=== PATIENT | male | born 1980 | race Caucasian/White ===

== ENCOUNTER 2020-02-22 19:14 | Emergency (ER) | payer OTHER, SELFPAY ==
--- NOTE | ~2020-02-22 | XR_ITS ---
EXAMINATION: XR shoulder RT min 2V INDICATION: Right shoulder pain, initial encounter TECHNIQUE: Four views of the right shoulder are submitted. COMPARISON: None FINDINGS: There is an oblique fracture at the junction of the middle/distal thirds of the right clavi amee. Glenohumeral and acromioclavicular joint spaces are normal. Soft tissues are unremarkable. IMPRESSION: Acute fracture of the right clavicle. Reviewed, dictated and finalized at location A.
--- NOTE | ~2020-02-22 | XR_ITS ---
EXAMINATION: XR elbow RT min 3V INDICATION: Right elbow pain, initial encounter TECHNIQUE: Four views of the right elbow are obtained. COMPARISON: None available FINDINGS: There is a transverse fracture of the olecranon with proximal retraction of the proximal ol ecranon fracture fragment. An elbow joint effusion is present. There is significant posterior soft ti ssue swelling overlying the olecranon. The proximal radius appears normal. IMPRESSION: 1. Acute fracture of the olecranon with elbow joint effusion and significant posterior soft tissue sw elling of the elbow. Reviewed, dictated and finalized at location A. IMPRESSION: 1. Acute fracture of the olecranon with elbow joint effusion and significant po sterior soft tissue swelling of the elbow.
--- NOTE | ~2020-02-22 | XR_ITS ---
EXAMINATION: XR ribs RT 2V w CXR 2V INDICATION: Right rib pain TECHNIQUE: AP and lateral views of the chest and right views of the right ribs were obtained. COMPARISON: None. FINDINGS: No displaced rib fracture is identified. The lungs are free of acute opacities. There is no pneumothorax. A small right pleural effusion is present. Again noted is mild deformity at the juncti on of the middle and distal thirds of the right clavicle. IMPRESSION: 1. No displaced rib fracture identified. 2. Nondisplaced right clavicle fracture. Reviewed, dictated and finalized at location A.
[2020-02-22 19:18] VITALS: BP 115/88; PULSE 62; RESP 15; TEMP 36.1; O2SAT 100
--- NOTE | 2020-02-22 20:26 | ED.FALL ---
HPI - Fall General Chief Complaint: Fall Stated Complaint: Fell off skate board Time Seen by Provider: 02/22/20 19:18 History of Present Illness HPI Narrative: Patient is a 39-year-old male who presents the ER status post falling off a skateboard. Fell on his right side. Mainly struck his elbow jarring his shoulder and then hurting his chest wall. Although is very swollen and has pain with range of motion. Also has pain over his clavicle with direct palpation and some pain over the anterior lateral chest wall. No dyspnea. Did not strike his head or lose consciousness. No numbness or tingling in the upper extremity. Related Data Allergies Allergy/AdvReac Type Severity Reaction Status Date / Time No Known Allergies Allergy Verified 02/22/20 19:21 Review of Systems Respiratory: Respiratory: Denies cough and Denies dyspnea Comments: Chest wall pain Musculoskeletal: Musculoskeletal: Reports arthralgias and Reports joint swelling Neurologic: Denies focal weakness and Denies numbness PMFSH Past Medical History Medical History (Updated 02/22/20 @ 20:51 by Freddy Kinsey MD) Healthy adult male Surgical History Surgical History (Updated 02/22/20 @ 20:48 by Freddy Kinsey MD) No pertinent past surgical history Social History Social History (Updated 02/22/20 @ 20:48 by Freddy Kinsey MD) Social History: Occasional EtOH Exam Narrative: Exam Narrative: GENERAL: Well-appearing, well-nourished, and in no acute distress. HEAD: Normocephalic, atraumatic. CHEST: Clear to auscultation. No respiratory distress. Tenderness anterolateral chest wall that is not in the mid axillary line. No palpation over right clavicle middle third. HEART: Regular rate and rhythm. Normal peripheral pulses. EXTREMITIES: Focused exam of the right upper extremity shows large amount of swelling over the elbow without radial head tenderness or tenderness over the condyles. No injury to the wrist or fingers. Abrasion noted over the lateral elbow and the deltoid of the right upper extremity. SKIN: Warm, dry, no rash. NEURO: No focal deficits. Alert and oriented x3. Course Course Emergency Course: Discussed results with Dr. Ortiz. Patient has been placed in a long-arm posterior splint. Vital Signs Vital signs: Vital Signs Temperature 97.0 F L 02/22/20 19:18 Pulse Rate 62 02/22/20 19:18 Respiratory Rate 15 02/22/20 19:18 Blood Pressure 115/88 02/22/20 19:18 Pulse Oximetry 100 02/22/20 19:18 Temperature 97.0 F L 02/22/20 19:18 Pulse Rate 62 02/22/20 19:18 Respiratory Rate 15 02/22/20 19:18 Blood Pressure 115/88 02/22/20 19:18 Pulse Oximetry 100 02/22/20 19:18 Procedures Orthopedic Splinting/Casting Injury #1: Splinting/Casting Date: 02/22/20 Splinting/Casting Time: 20:40 Side: right Upper Extremity Injury Location: elbow Upper Extremity Immobilizer: posterior splint Splint: customized in ED Pre-Procedure Neuro Vascular Exam: normal Post-Procedure Neuro Vascular Exam: normal Other Orthopedic Equipment: other (Sling) Discharge Plan Discharge Clinical Impression: Closed olecranon fracture, Broken clavicle Patient Disposition: Home, Self-Care Condition: Stable Instructions: Antibiotic Form, Clavicle Fracture (ED), Elbow Fracture (ED) Additional Instructions: Return to the ER if you have a cold blue hand, you have new numbness or tingling in her hand, you suffer new injury, you have additional concerns. Prescriptions: New hydrocodone-acetaminophen 5-325 mg tablet 1 tablet PO Q6H PRN (Reason: pain) Qty: 20 RF: 0 Follow-up/Referrals: PHYSICIAN NOT ON STAFF,NONSTAFF [Primary Care Provider] - Julius Carlos MD [Physician] - 1 Day
== END 2020-02-22 21:00 | disposition home or self-care (01) ==
PROVIDERS: Emergency Provider Emergency Medicine
DX: S52.021A Displaced fracture of olecranon process without intraarticular extension of right ulna, initial encounter for closed fracture (principal); S42.021A Displaced fracture of shaft of right clavicle, initial encounter for closed fracture; V00.131A Fall from skateboard, initial encounter
CPT/HCPCS: 29105; 71046; 71100; 73030; 73080; 99284; A4565; A9270

== ENCOUNTER 2020-02-23 04:41 | Emergency (ER) | payer OTHER, SELFPAY ==
[2020-02-23] VITALS (7 sets, daily range): BP systolic 92–134; BP diastolic 58–83; PULSE 55–85; RESP 15; O2SAT 97–100
--- NOTE | ~2020-02-23 | CT_ITS ---
EXAMINATION: CT brain wo con DATE: 02/23/2020 05:16 INDICATION: Syncope TECHNIQUE: Computed tomography (CT) of the head was performed without intravenous contrast. Sagittal and coronal reconstructions were performed. The mA was adjusted according to patient size. Iterative reconstruction technique was employed. The dose-length product was 681.00 mGy-cm. COMPARISON: None FINDINGS: No acute intracranial hemorrhage, acute infarction or abnormal extra axial fluid collection. Ventricl es are normal and symmetric. No mass/mass effect. Mucous retention cyst in the right maxillary sinus. The orbits and mastoid air cells are normal. IMPRESSION: 1. No acute intracranial process. Reviewed, dictated and finalized at location A.
--- NOTE | 2020-02-23 04:50 | ECG_ITS ---
Measurements Intervals [place] Rate: 68 P: 54 GA: 169 QRS: 19 QRSD: 98 T: 47 QT: 392 QTc: 418 Interpretive Statements SINUS RHYTHM WITH SINUS ARRHYTHMIA BASELINE WANDER- V3-V6 NORMAL ECG Electronically Signed On 02-23-2020 7:39:17 CDT by Johnny Holm D.O.
[2020-02-23 04:58] LABS: Glucose Point of Care 108 (65-105)
[2020-02-23] MEDS: SODIUM CHLORIDE 0.9% IV 1,000 ML 999 ML IV CONT ×2 (05:05→06:08)
--- NOTE | 2020-02-23 05:07 | PC.NURSE ---
Pt. to CT via stretcher
[2020-02-23 05:11] LABS: Basophils Percent Auto 0.2 % (0.2-1.2); Eosinophils Percent Auto 0.1 % (0-4.4); Hematocrit 44.4 % (42.0-52.0); Hemoglobin 14.8 g/dL (14.0-18.0); Immature Granulocyte Absolute 0.04 K/mm3 (0.00-0.031); Immature Granulocyte Percent A 0.4 % (0-0.5); Lymphocytes Absolute Auto 1.04 K/mm3 (0.9-3.2); Lymphocytes Percent Auto 10.4 % (18.3-44.2); Mean Corpuscular HGB Conc 33.3 g/dl (32-36); Mean Corpuscular Hemoglobin 29.6 pg (26-34); Mean Corpuscular Volume 88.8 fl (80-100); Mean Platelet Volume 9.9 fl (7.4-10.4); Monocytes Absolute Auto 0.6 K/mm3 (0.1-0.6); Neutrophils Absolute Auto 8.3 K/mm3 (1.3-6.7); Neutrophils Percent Auto 82.9 % (45.5-73.1); Platelet Count Result 209 k/mm3 (150-375); Red Cell Distribution Width 12.9 % (11.5-14.5)
--- NOTE | 2020-02-23 05:18 | ED.SYNCOPE ---
HPI - Syncope General Chief Complaint: Syncope Stated Complaint: passing out Time Seen by Provider: 02/23/20 04:43 History of Present Illness HPI narrative: Patient is a 39-year-old male who presents ER with syncope x2. Patient was recently seen in the ER this evening after falling off of a skateboard and landing on his right side. He suffered a fracture to his right olecranon in his right clavicle. When he fell off his skateboard he was not a high rate of speed and did not strike his head or lose consciousness. He reports the only pain he continues to have is located in his right shoulder clavicle and in his elbow. He is not having any chest discomfort or abdominal pain. When he was at home he got up out of bed to walk to the bathroom. He then felt lightheaded and woke up in the shower after having passed out. He then went back to bed he woke up later and again attempted to go to the bathroom. He felt himself about to go down and his helped him to sit but then he lost consciousness again. Denies injuring himself in these 2 falls. He reports he did not eat dinner and he did receive some narcotic pain medication in the ER. Otherwise he has not had significant heat exposure and feels he has been drinking water adequately through the day. Related Data Allergies Allergy/AdvReac Type Severity Reaction Status Date / Time No Known Allergies Allergy Verified 02/22/20 19:21 Review of Systems Review of Systems: All systems reviewed & are unremarkable except as noted in HPI and below Constitutional: Constitutional: Denies chills, Denies fever(s) and Denies weakness Cardiovascular: Cardiovascular: Denies chest pain and Denies radiating jaw, neck or arm pain Respiratory: Respiratory: Denies dyspnea Gastrointestinal: Gastrointestinal: Denies abdominal pain, Denies nausea and Denies vomiting Musculoskeletal: Musculoskeletal: Reports arthralgias and Reports joint swelling Neurologic: Reports syncope, Denies headache(s), Denies focal weakness and Denies numbness PMFSH Past Medical History Medical History (Updated 02/23/20 @ 06:17 by Freddy Kinsey MD) Healthy adult male Surgical History Surgical History (Updated 02/22/20 @ 20:48 by Freddy Kinsey MD) No pertinent past surgical history Social History Social History (Updated 02/22/20 @ 20:48 by Freddy Kinsey MD) Social History: Occasional EtOH Exam Narrative: Exam Narrative: GENERAL: Well-appearing, well-nourished, and in no acute distress. HEAD: Normocephalic, atraumatic. ENT: Mucous membranes moist. NECK: Supple. No midline tenderness of the cervical spine. CHEST: Clear to auscultation. No respiratory distress. Persistent tenderness over the right clavicle where there is some slight swelling and bruising. HEART: Regular rate and rhythm. Normal peripheral pulses. ABDOMEN: Soft, nontender, nondistended. EXTREMITIES: Right upper extremity immobilized in a splint. No deformity to the left arm or lower extremities. SKIN: Warm, dry, no rash. NEURO: No focal deficits. Alert and oriented x3. Course Course Emergency Course: Positive orthostatics. Unremarkable lab work. Will receive IV hydration. Vital Signs Vital signs: Vital Signs Pulse Rate 71 02/23/20 04:47 Respiratory Rate 15 02/23/20 04:47 Blood Pressure 134/83 02/23/20 04:47 Pulse Oximetry 100 02/23/20 04:47 Pulse Rate 85 02/23/20 05:59 Respiratory Rate 15 02/23/20 05:45 Blood Pressure 110/77 02/23/20 05:59 Pulse Oximetry 100 02/23/20 05:45 MDM - Syncope Lab Data Result diagrams: 02/23/20 05:06 02/23/20 05:06 Labs: Lab Results 02/23/20 02/23/20 02/23/20 Range/Units 04:55 05:06 05:06 WBC 10.0 (4.5-10.0) K/mm3 RBC 5.00 (4.6-6.20) M/mm3 Hgb 14.8 (14.0-18.0) g/dL Hct 44.4 (42.0-52.0) % MCV 88.8 (80-100) fl MCH 29.6 (26-34) pg MCHC 33.3 (32-36) g/dl RDW 12.9 (11.5-14.5) % P
[2020-02-23 05:22] LABS: Blood Urea Nitrogen 15 mg/dL (9-20); Calcium 8.7 mg/dL (8.4-10.2); Carbon Dioxide 26 mmol/L (22-30); Chloride 103 mmol/L (98-107); Estimated Glomerular Filt Rate > 60; Glucose 122 mg/dL (75-110); Potassium 3.9 mmol/L (3.4-5.0); Sodium 136 mmol/L (137-145)
== END 2020-02-23 07:15 | disposition home or self-care (01) ==
PROVIDERS: Emergency Provider Emergency Medicine
DX: I95.1 Orthostatic hypotension (principal)
CPT/HCPCS: 36415; 70450; 80048; 85025; 93005; 96360; 96361; 99284; J7030

== ENCOUNTER 2020-02-24 01:51 | Day surgery (SDC) | payer OTHER, SELFPAY ==
[2020-02-23 13:34] VITALS: BMI 22.4
--- NOTE | 2020-02-23 15:28 | HP_ITS ---
DATE OF SERVICE: 02/24/2020 DIAGNOSIS: Displaced right olecranon fracture. HISTORY OF PRESENT ILLNESS: The patient is a 39-year-old male patient of Dr. Harding, who presents today for ORIF of his right olecranon fracture. He injured it on 02/21 when he was at home with his kids, while they were riding a bike, he was chasing after them on a skateboard. He fell off the skateboard landing hard on his right side. He had immediate pain in the right elbow as well as the right shoulder. He was taken to the emergency room, had x-rays done, which showed he had displaced right olecranon fracture. He also had a minimally angulated right clavicle fracture. He was seen in the office by Dr. Carlos on 02/22. After reviewing the x-rays, Dr. Carlos advised him that with displacement of the fracture, this needs to be fixed surgically and presents today for that. PAST MEDICAL HISTORY: He has had no previous surgeries. CURRENT MEDICATIONS: His only current medication is pain medication, Dunlo 5s for pain. ALLERGIES: HE HAS NO KNOWN DRUG ALLERGIES. FAMILY HISTORY: Significant for heart disease and diabetes. SOCIAL HISTORY: He is a nonsmoker, occasional drinker. PHYSICAL EXAM: VITAL SIGNS: He is 6 feet 10 inches, 215 pounds. Other vital signs per nursing on the morning of surgery. HEENT: Grossly normal. LUNGS: Clear bilaterally. HEART: Regular rate and rhythm. EXTREMITIES: His right elbow, he has mild to moderate swelling in the elbow as well as in the proximal forearm with bruising noted. There is no blistering in the skin. Skin is all intact. No numbness or tingling in the right hand. No swelling in the hand. 2+ radial pulse. He has mild tenderness over the mid right clavicle as well. ABDOMEN: He has multiple abrasions on the right side of his abdomen. NEUROLOGICAL: His motor is intact to the hand and forearm as well as sensory is intact to his right arm. X-RAYS: Demonstrate a displaced right olecranon fracture with significant gapping of the fractured portion of the olecranon. IMPRESSION: The patient has displaced right olecranon fracture. Again, this needs to be fixed surgically given the displacement that it has. Surgical procedure as well as risks and complications were discussed. All questions were answered and we will proceed. D I MT: Samantha
[2020-02-24] VITALS (7 sets, daily range): BP systolic 111–144; BP diastolic 77–88; PULSE 56–82; RESP 10–16; TEMP 36.4–36.9; O2SAT 100
--- NOTE | ~2020-02-24 | XR_ITS ---
EXAMINATION: XR surgery orthopedic INDICATION: ORIF of the right elbow TECHNIQUE: Five intraoperative fluoroscopic images are submitted for review. Fluoroscopy exposure dc e was 53.3 seconds. The DAP for this procedure was [id number] mGym2. COMPARISON: None available FINDINGS: Fluoroscopic images demonstrate plate and screw fixation of the previously described olecra non fracture. Bone alignment is anatomic. Please refer to procedure note for full details. IMPRESSION: 1. Open reduction and internal fixation of the previously described right olecranon fracture. Please refer to procedure note for full details. Reviewed, dictated and finalized at location A. IMPRESSION: 1. Open reduction and internal fixation of the previously described right olecr anon fracture. Please refer to procedure note for full details.
--- NOTE | 2020-02-24 11:10 | WPDANESEPPF ---
Anes - Initial Pre Proc Eval Procedure: Operation Date: 02/24/20 15:00 Proposed Procedures p Open Reduction Internal Fixation Right Olecranon Fracture - Julius Carlos MD Date/Time: 02/24/20 11:10 Surgeon: Julius Carlos MD Pre Op Diagnosis: Right Olecranon Fracture Patient Data Age: 39 Gender: M Height: 2.11 m Weight: 99.79 kg Allergies Allergy/AdvReac Type Severity Reaction Status Date / Time No Known Allergies Allergy Verified 02/23/20 13:35 Home Medications Medication Instructions Recorded Confirmed Type hydrocodone-acetaminophen 1 tablet PO Q6H PRN #20 tablet 02/22/20 02/23/20 Rx Patient hx anesthesia problems: none Family hx anesthesia problems: none PMFSH Past Medical History Medical History (Updated 02/24/20 @ 00:00 by Viola Christopher) Healthy adult male Surgical History Surgical History (Updated 02/22/20 @ 20:48 by Freddy Kinsey MD) No pertinent past surgical history Social History Social History (Updated 02/22/20 @ 20:48 by Freddy Kinsey MD) Social History: Occasional EtOH Anes - Eval Final PreProcedure Day of Procedure 02/24/20 11:10 Patient weight: normal Heart: regular rate and rhythm Lungs: clear to auscultation and normal air movement Airway: Mallampati scale class II Neurological: alert and oriented Last oral intake: >/= 8 hours ASA classification: I Emergent: no Anesthetic plan: proceed Anesthesia type and monitoring: general LMA and standard monitoring Informed Consent: The patient's anesthetic plan and its attendant risks and benefits were discussed with the patient/family/POA. Questions were solicited and answers provided to the satisfaction of the patient/family/POA.
[2020-02-24] MEDS: LACTATED RINGERS 1,000 ML 30 ML IV CONT ×2 (13:00→16:55)
--- NOTE | 2020-02-24 14:50 | WPDHPUPDATE1 ---
History and Physical Update Update Date/Time: 02/24/20 14:50 History and Physical has been reviewed, including an updated exam of the patient. There are NO changes in the patient's condition. Risks, benefits, and alternatives have been discussed and questions answered. Patient agrees to proceed with procedure.
[2020-02-24] MEDS: ceFAZolin 2 GM/D5W 50 ML 2 GM/50 ML BAG IVPB (14:56)
[2020-02-24] MEDS: ceFAZolin SODIUM 1 GM VIAL IRRIGATION (15:34)
[2020-02-24] MEDS: KETOROLAC 30 MG/ML VIAL (*BKC) IV PUSH (16:25)
[2020-02-24] MEDS: ceFAZolin SODIUM 1 GM VIAL IV PUSH (16:27)
--- NOTE | 2020-02-24 16:50 | P.OP_ITS ---
Procedure Note - Detailed Date of procedure: 02/24/20 Pre-op diagnosis: Right Olecranon Fracture Post-op diagnosis: same Procedure performed: Open reduction internal fixation Accu Med plate Description of procedure: Patient brought to the operating room general anesthesia was measured the right arm inspected. Moderate swelling over the dorsum of the elbow. He had some abrasions there which were already dry and extremely superficial and gently scrubbed the again with a chlorhexidine cloth and prepped with DuraPrep covering all this, Diovan. He received 2 g of Ancef 1.5 g of vancomycin IV preoperatively. Limb was examined tourniquet elevated to 250 mmHg. A 4 in incision was made over the dorsum of the proximal ulna skirting lateral to the olecranon and extending this about 3 or 4 cm proximal to the tip of the olecranon. The olecranon bursa was incised exposing the fracture and hematoma was carefully evacuated and the fracture surfaces cleared of debris. I could not find any comminuted bone chips and we carefully looked for these. Couple of mm of periosteum was elevated at each edge of the fracture so that we could see the fracture and a perfect anatomic reduction was achievable with towel clip style bone reduction clamps medial and lateral. We chose the small Accu Med green olecranon plate. This was applied to the fracture and we compressed the plate into the triceps tendon firmly and placed a stabilizing pin through the K-wire holes the distal end of the plate and then using the drill guide placed a 2.0 mm K-wire in the home run screw portion and then we evaluated the reduction and plate placement under fluoro and everything looked appropriate. Reduction was anatomic. We then placed a screw in the oval hole in compression mode and compressed this down compressing the plate the ulna. We placed 22.7 mm locking screws in the most proximal 2 of the tear of screw holes. We drilled into the more distal pair of the proximal screw holes and found that this unfortunately went right at the fracture site so we left these empty. An additional screw was placed the distal and the plate again in compression and we compressed and secured the plate and the 2.0 wire was replaced with a 60 mm screw. Two additional screws were placed in the plate and we evaluated the construct fluoroscopically in solid the screw lengths were appropriate screw there was no intra-articular screw penetration and there was excellent compression at the dorsum of the fracture with the fracture line was not visible under fluoro. The wound was again irrigated with Ancef solution we reapproximated in a bursal tissue 3 0 Vicryl and reapproximated the skin with through subcutaneous Vicryl and skin glue EBL is about 20 cc. Tourniquet time was less than an hour period he was transferred postop recovery room in stable condition. Anesthesia: GETA Surgeon: Julius Carlos MD Vice President Of Customer Service: Lul SLOAN Estimated blood loss (mL): 20 Drains: No Packing: No Pathology: none sent Complications: No immediate complications Condition: stable Disposition: PACU
== END 2020-02-24 18:35 | disposition home or self-care (01) ==
PROVIDERS: PCP Family Medicine; Visit Provider Orthopaedic Surgery
PROC: (CPT 24685; principal; 2020-02-24 15:00)
DX: S52.021A Displaced fracture of olecranon process without intraarticular extension of right ulna, initial encounter for closed fracture (principal); V00.131A Fall from skateboard, initial encounter; Y93.51 Activity, roller skating (inline) and skateboarding; Y92.480 Sidewalk as the place of occurrence of the external cause; Y99.8 Other external cause status
CPT/HCPCS: 24685; A9270; C1713; C1769; J0690; J1100; J1170; J1885; J2250; J2405; J2704; J3010; J3370; J7120